=== PATIENT | female | born 1960 | race Caucasian/White ===

== ENCOUNTER 2021-11-30 07:22 | Outpatient (REF) | payer BC, SELFPAY ==
[2021-11-30 11:30] LABS: Hematocrit 41.3 % (37.0-47.0); Hemoglobin 13.7 g/dl (12.0-16.0); Mean Corpuscular HGB Conc 33.2 g/dl (31.0-35.0); Mean Corpuscular Hemoglobin 30.4 pg (27.0-33.0); Mean Corpuscular Volume 91.8 fL (80.0-98.0); Mean Platelet Volume 10.8 fL (9.4-12.3); Platelet Count 282 X10*3/uL (160-400); Red Cell Distribution Width 12.9 % (11.0-16.0); White Blood Count 5.6 X10*3/uL (4.8-10.8)
[2021-11-30 11:43] LABS: Estimated Average Glucose 117 mg/dL; Hemoglobin A1c % 5.7 %
[2021-11-30 12:01] LABS: Alanine Aminotransferase 16 U/L (0-31); Albumin Level 4.4 g/dL (3.5-5.0); Alkaline Phosphatase 93 U/L (39-117); Anion Gap 10 (12-20); Aspartate Amino Transferase 20 U/L (5-31); Bilirubin Total 0.8 mg/dL (0.0-1.0); Blood Urea Nitrogen 14 mg/dL (9-16); Calcium 9.3 mg/dL (8.4-10.2); Carbon Dioxide 27 mmol/L (22-29); Chloride 109 mmol/L (96-108); Cholesterol 224 mg/dL; Estimated Glomerular Filt Rate 59; Glucose Random 104 mg/dL (60-115); HDL Cholesterol 52 mg/dL; LDL Cholesterol Calculated 146 mg/dl; Potassium 3.9 mmol/L (3.3-5.1); Sodium 142 mmol/L (135-145); Total Protein 6.9 g/dL (6.5-8.0); Triglycerides 134 mg/dL
== END 2021-11-30 07:23 | disposition home or self-care (01) ==
LOC: HO.HMGCLDS 07:22
PROVIDERS: Visit Provider Nurse Practitioner Family
DX: E78.00 Pure hypercholesterolemia, unspecified (principal); M79.89 Other specified soft tissue disorders
CPT/HCPCS: 36415; 80053; 80061; 83036; 85027

== ENCOUNTER 2022-11-06 07:06 | Outpatient (REF) | payer BC, SELFPAY ==
[2022-11-06 11:45] LABS: Hematocrit 40.6 % (37.0-47.0); Hemoglobin 13.4 g/dl (12.0-16.0); Mean Corpuscular Hemoglobin 30.5 pg (27.0-33.0); Mean Corpuscular Volume 92.5 fL (80.0-98.0); Mean Platelet Volume 10.3 fL (9.4-12.3); Platelet Count 294 X10*3/uL (160-400); Red Blood Count 4.39 X10*6/uL (4.20-5.50); Red Cell Distribution Width 12.8 % (11.0-16.0); White Blood Count 5.8 X10*3/uL (4.8-10.8)
[2022-11-06 12:16] LABS: Estimated Average Glucose 111 mg/dL; Hemoglobin A1c % 5.5 %
[2022-11-06 12:24] LABS: Alanine Aminotransferase 23 U/L (0-31); Albumin Level 4.2 g/dL (3.5-5.0); Alkaline Phosphatase 87 U/L (39-117); Anion Gap 14 (12-20); Aspartate Amino Transferase 29 U/L (5-31); Bilirubin Total 1.2 mg/dL (0.0-1.0); Blood Urea Nitrogen 18 mg/dL (9-16); Calcium 9.3 mg/dL (8.4-10.2); Carbon Dioxide 25 mmol/L (22-29); Chloride 109 mmol/L (96-108); Cholesterol 211 mg/dL; Estimated Glomerular Filt Rate > 60; Glucose Random 114 mg/dL (60-115); HDL Cholesterol 55 mg/dL; LDL Cholesterol Calculated 138 mg/dl; Potassium 3.6 mmol/L (3.3-5.1); Sodium 144 mmol/L (135-145); Total Protein 6.8 g/dL (6.5-8.0); Triglycerides 93 mg/dL
== END 2022-11-06 07:07 | disposition home or self-care (01) ==
LOC: HO.HMGCLDS 07:06
PROVIDERS: PCP Internal Medicine; Visit Provider Nurse Practitioner Family
DX: Z00.00 Encounter for general adult medical examination without abnormal findings (principal); E78.00 Pure hypercholesterolemia, unspecified; R73.01 Impaired fasting glucose
CPT/HCPCS: 36415; 80053; 80061; 83036; 85027

== ENCOUNTER 2023-04-20 08:00 | Day surgery (SDC) | payer BC, SELFPAY ==
[2023-04-18 11:34] VITALS: BMI 35.1
--- NOTE | 2023-04-18 14:15 | HO.ANESPROP2 ---
Documented by User: Tiffanie Padilla NP 04/18/23 14:16 HPI - Anesthesia Eval Consult details Narrative: 62yo F for Colonoscopy [facility] Past Medical History Medical History Osteoarthritis Depression Surgical History Surgical History History of total right knee replacement History of left knee replacement Hx of hernia repair H/O colonoscopy Social History Social History Patient Tobacco Use Status: Never used Tobacco Use of substances other than those prescribed or required for medical reasons: No Are you DNR?: No Advance Directives: No Advance Directives Information Provided: Yes Meds Allergies Allergy/AdvReac Type Severity Reaction Status Date / Time No Known Allergies Allergy Verified 04/20/23 08:10 Home Medications Medication Instructions Recorded Confirmed Last Taken Type bupropion HCl 300 mg 24 hr tablet, 300 mg PO DAILY 04/18/23 04/18/23 Unknown History extended release cholecalciferol (vitamin D3) 25 25 mcg PO DAILY 04/18/23 04/18/23 Unknown History mcg (1,000 unit) tablet (Vitamin D3) multivitamin 1 tab PO DAILY 04/18/23 04/18/23 Unknown History omega 2-zgv-jkl-fish oil 1,000 mg 1 cap PO DAILY 04/18/23 04/18/23 04/13/23 History (120 mg-180 mg) capsule (Fish Oil) sertraline 50 mg tablet 50 mg PO DAILY 04/18/23 04/18/23 Unknown History Exam Height,Weight and Vital Signs: Height 5 ft 3 in Weight 89.811 kg Assessment and Plan Assessment Anesthesia Assessment: Chart Reviewed Documented by User: Ale Card MD 04/20/23 08:28 [facility] Past Medical History Medical History Osteoarthritis Depression Surgical History Surgical History History of total right knee replacement History of left knee replacement Hx of hernia repair H/O colonoscopy History of Problems with Anesthesia: No Social History Social History Patient Tobacco Use Status: Never used Tobacco Use of substances other than those prescribed or required for medical reasons: No Are you DNR?: No Advance Directives: No Advance Directives Information Provided: Yes Meds Allergies Allergy/AdvReac Type Severity Reaction Status Date / Time No Known Allergies Allergy Verified 04/20/23 08:10 Home Medications Medication Instructions Recorded Confirmed Last Taken Type bupropion HCl 300 mg 24 hr tablet, 300 mg PO DAILY 04/18/23 04/18/23 Unknown History extended release cholecalciferol (vitamin D3) 25 25 mcg PO DAILY 04/18/23 04/18/23 Unknown History mcg (1,000 unit) tablet (Vitamin D3) multivitamin 1 tab PO DAILY 04/18/23 04/18/23 Unknown History omega 5-teg-qod-fish oil 1,000 mg 1 cap PO DAILY 04/18/23 04/18/23 04/13/23 History (120 mg-180 mg) capsule (Fish Oil) sertraline 50 mg tablet 50 mg PO DAILY 04/18/23 04/18/23 Unknown History Exam Airway Mallampati Class: II TM Dist: >3cm Neck ROM: Full Loose/Missing/Broken Teeth: No Heart: RRR Lungs: CTA Assessment and Plan Assessment Anesthesia Assessment: Anesthesia Plan Discussed Final Anesthetic Review History of Problems with Anesthesia: No NPO: Yes ASA Class: II Final Preanesthetic Review: Meds/Allgs Chart Reviewed, Consent Obtained/Reviewed and Anes Risks/Benef Reviewed Patient Risk: Low Procedure Risk: Low Anesthetic Plan Anesthetic Plan: MAC: Disposition: Standard PACU
[2023-04-20 08:03] VITALS: BP 134/81; PULSE 69; RESP 16; TEMP 36.3; O2SAT 95; BMI 34.9
[2023-04-20] MEDS: Lactated Ringers 1,000 ML 100 ML IVCONT (08:25)
--- NOTE | 2023-04-20 08:43 | MHC.SHP ---
Pre-Procedural Eval Section A Date of Service: 04/20/23 Section B Chief Complaint: screening Details of Present Illness: see H&P no changes Relevant Social History: None Present Medications: see Short Stay Collaborative assessment Medical History: No relevant PMH History of Previous Operations: No relevant previous surgery Allergies: Allergies Allergy/AdvReac Type Severity Reaction Status Date / Time No Known Allergies Allergy Verified 04/20/23 08:10 Review of Systems Sugical H&P ROS: Negative: Constitution, Cardiovascular, Respiratory, Neurological, Psychiatric, Hem-Onc, Allergic/Immunologic, Gastrointestinal, Genitourinary, Musculoskeletal, Integumentary, Endocrine and Eyes/Ears/Nose/Throat Exam Surgical H&P Exam: Normal: HEENT, Normal: Heart, Normal: Lungs, Normal: Extremities, Normal: Abdomen, Normal: Skin and Normal: Neurological Plan Diagnosis/Plan: Unchanged I have reviewed the history and physical and performed a pertinent physical examination on my patient. No changes have occurred unless specified. Time Spent With Patient Time: Total time managing care of this patient today ____ minutes.
[2023-04-20 09:14] VITALS: BP 107/53; PULSE 63; RESP 12; TEMP 36.7; O2SAT 96
--- NOTE | 2023-04-20 09:25 | OP_ITS ---
DATE OF SERVICE: 04/20/2023 SURGEON: Norris Cosby MD INDICATIONS: Colon cancer screening. PREOPERATIVE DIAGNOSIS: POSTOPERATIVE DIAGNOSIS: PROCEDURE PERFORMED: Colonoscopy to the cecum. ESTIMATED BLOOD LOSS: COMPLICATIONS: ANESTHESIA: Monitored anesthesia care. ASSISTANTS: SPECIMENS: DESCRIPTION OF PROCEDURE: A history and physical were performed. The risks and benefits of the procedure were explained to the patient and informed consent was obtained. The patient was placed in the left lateral decubitus position. A digital rectal exam was performed and was found to be normal. The Olympus pediatric video colonoscope was introduced into the rectum and advanced to the cecum. The cecum was identified by transillumination, palpation, and identification of ileocecal valve. Examination was performed and the scope was removed. She tolerated the procedure well and was taken to recovery in stable condition. FINDINGS: The terminal ileum was not examined. The visualized colonic mucosa was normal. The quality of prep was good. No polyps were identified. There was mild sigmoid diverticulosis. Retroflexed examination showed small internal hemorrhoids. IMPRESSION: Normal colonoscopy. RECOMMENDATIONS: 1. Follow up as needed. 2. Repeat colonoscopy is recommended in 10 years for average risk individuals. MD TIO Franks/BLACK / [id number]
[2023-04-20 09:35] VITALS: BP 128/75; PULSE 66; RESP 18; TEMP 36.1; O2SAT 96
== END 2023-04-20 10:10 | disposition home or self-care (01) ==
PROVIDERS: PCP Internal Medicine; Visit Provider Internal Medicine Gastroenterology
PROC: 0DJD8ZZ Inspection of Lower Intestinal Tract, Via Natural or Artificial Opening Endoscopic (ICD-10-PCS; CPT 45378; principal; 2023-04-20 09:00)
DX: Z12.11 Encounter for screening for malignant neoplasm of colon (principal); K57.30 Diverticulosis of large intestine without perforation or abscess without bleeding; K64.8 Other hemorrhoids; M19.90 Unspecified osteoarthritis, unspecified site; F32.A Depression, unspecified; Z79.899 Other long term (current) drug therapy; Z96.653 Presence of artificial knee joint, bilateral; Z98.890 Other specified postprocedural states
CPT/HCPCS: 45378; J2250; J2704

== ENCOUNTER 2023-12-10 09:53 | Outpatient (AMB) | payer BC, SELFPAY ==
--- OUTSIDE RECORDS SUMMARY | 2023-12-10 09:55 | XMS_ITS ---
Author Organization [facility] Address [address] [place] [address] Care Team Providers Care Painter Supervisor Name Role Phone Pranay [place] MD Primary Care Provider UnavailNorris Billingsley Jr REASON FOR VISIT screening Encounters Encounter Location Date Provider Diagnosis [facility] [address], [place] [phone] 04/20/2023 Norris Cosby Jr Encounter for screening colonoscopy Z12.11 ASSESSMENTS Encounter Date Diagnosis Assessment Notes Treatment Notes Treatment Clinical Notes 04/20/2023 Encounter for screening colonoscopy (ICD-10 - Z12.11) PLAN OF TREATMENT No Information
--- OUTSIDE RECORDS SUMMARY | 2023-12-10 09:56 | XMS_ITS | Continuity of Care Document ---
Author Organization [facility] Address [address] [place] [address]- Care Team Providers Care Architect Manager Name Role Phone Pranay Angeles MD Primary Care Physician Encounter 02/19/20 - 03/02/20 [facility] [address] [place] [address]- [facility] Discharge Disposition: GOALS MET Allergies, Adverse Reactions, Alerts Substance Reaction Severity Status Pollen sneezing watery eyes scratchy throat Active Other Environmental Allergy cigarette sm luis fernando causes congestion and headaches Active Medications acetaminophen 325 mg oral tablet 650 mg, By Mouth, Every 6 hours, Refills 0, Maintenance, 05/23/18 7:25:14 EST Start Date: 05/23/18 Status: Ordered Aspirin Tablet 325 mg, By Mouth, 2 times a day, Refills 0, Maintenance, 02/18/20 7:50:00 EDT Start Date: 02/18/20 Status: Ordered bupropion 150 mg oral tablet, extended release 1 tablet = 150 mg, By Mouth, 2 times a day, 0 Refills, Maintenance, 05/21/14 9:29:52 Start Date: 05/21/14 Status: Ordered celecoxib 200 mg oral capsule 1 capsule = 200 mg, By Mouth, Daily, 0 Refills, Maintenance, 02/18/20 8:04:00 EDT, Capsule Start Date: 02/18/20 Status: Ordered Colace Capsule 100 mg, 1, capsule, By Mouth, 2 times a day, Refills 0, Maintenance, 02/18/20 7:50:00 EDT Start Date: 02/18/20 Status: Ordered pantoprazole 40 mg oral delayed release tablet = 40 mg, By Mouth, Daily, 0 Refills, Maintenance, 02/18/20 7:50:00 EDT, EC Tablet Start Date: 02/18/20 Status: Ordered sertraline 50 mg oral tablet 1 tablet = 50 mg, By Mouth, Daily, 0 Refills, Maintenance, 05/21/14 9:29:10 Start Date: 05/21/14 Status: Ordered Problem List Condition Effective Dates Status Health Status Inform ant Urinary incontinence(Confirmed) Active Social History Social History Type Response Smoking Status Never smoker entered on: 05/21/14 Sex
--- OUTSIDE RECORDS SUMMARY | 2023-12-10 09:56 | XMS_ITS ---
Author Organization [facility] Address [address] [place] [address] Care Team Providers Care Production Supervisor Off Shift Name Role Phone Pranay [place] MD Primary Care Provider Norris Owens Jr Unavailable ALLERGIES No Known Allergies REASON FOR VISIT Patient presents today for a screening colonoscopy MEDICATIONS Medication SIG (Take, Route, Frequency, Duration) Notes Start Date End Date Status Sertraline HCl Activ e Vitamin D3 Active buPROPion HCl Active Fish Oil 1000 MG 1 capsule Orally Onc e a day for 30 day(s) Active Multi Vitamin - 1 tablet Orally Once a day for 30 day(s) Active MiraLax (colon prep) 17 GM/SCOOP mixed with Gatorade or Crystal Light Orally begin at 5:00 p.m. the day before the procedure for 1 day 02/28/2023 Active IMMUNIZATIONS Vaccine Route Administration Date Status Comme nts Influenza Unknown 02/28/2023 Refused SOCIAL HISTORY Tobacco Use: Social History Observation Description Date Details (start date - stop date) Never Smoker NA - NA Sex Assigned At : Social History Observation Description Sex Assigned At Unknown Tobacco Use/Smoking Question Answer Notes Patient is a nonsmoker Alcohol Screen Question Answer Notes Did you have a drink contain ing alcohol in the past year? Yes Points 3 Interpretation Positive How often did you have 6 or more drinks on one occasion in the past year? Less than monthly (1 point) How many drinks did you have on a typical day when you were drinking in the past year? 1 or 2 drinks (0 point) How often did you have a dri nk containing alcohol in the past year? 2 to 4 times a month (2 points) PROBLEMS Problem Type ICD Code Onset Dates Problem Status W/U Status Risk SNOMED Code Notes Problem Colon cancer screening (Z12.11) Active confirmed 860342503 Problem Encounter for other preprocedural examination (Z01.818) Active confirmed 964064815 Problem Long-term current use of high risk medication other than anticoagulant (Z79.899) Active confirmed 715079665 VITAL SIGNS BMI 34.59 kg/m2 02/28/2023 Blood pressure systolic 000 mm Hg 02/29/20 23 Blood pressure diastolic 00 mm Hg 023 Height 63.50 in 02/28/2023 Temperature 97.8 degrees Fahrenheit 02/29/20 23 Weight 198 lb 6 oz lbs 02/28/2023 Encounters Encounter Location Date Provider Diagnosis [facility] [address] [place] [address] 02/28/2023 Norris Cosby Jr Colon cancer screening Z12.11 ; Encounter for other preprocedural examination Z01.818 and Long-term current use of high risk medication other than anticoagulant Z79.899 ASSESSMENTS Encounter Date Diagnosis Assessment Notes Treatment Notes Treatment Clinical Notes 02/28/2023 Colon cancer screening (ICD-10 - Z12.11) Colonoscopy material was printed 02/28/2023 Encounter for other preprocedural examination (ICD-10 - Z01.818) 02/28/2023 Long-term current use of high risk medication other than anticoagulant (ICD-10 - Z79.899) PLAN OF TREATMENT Medication Medication Name Sig Start Date Stop Date Notes MiraLax (colon prep) 17 GM/SCOOP mixed with Gatorade or Crystal Light Orally begin at 5:00 p.m. the day before the procedure for 1 day 02/28/2023 Treatment Notes Assessment Notes Colon cancer screening Colonoscopy mater ial was printed Future Test Test Name Order Date COLONOSCOPY 02/28/2023 Next Appt Details Follow Up: prn, Reason: Progress Notes * Examination Category Sub-Category Detail Notes General Examination GENERAL APPEARANCE: in no ac dulce distress HEAD: normocephalic EYES: sclera non-icteric NECK/THYROID: no lymphadenopathy HEART: S1, S2 normal, no mu rmurs CHEST: normal shape and exp ansion LUNGS: clear to auscultatio n bilaterally ABDOMEN: soft, nontender, non distended, bowel sounds present, no organomegaly SKIN: anicteric EXTREMITIES: no clubbing, cyanosi s, or edema PSYCH: cognitive function i ntact ORAL CAVITY: mucosa moist
--- OUTSIDE RECORDS SUMMARY | 2023-12-10 09:56 | XMS_ITS | Continuity of Care Document ---
Author Organization [facility] ter Address [address] [place] [address]- Care Team Providers Care Manager Front Name Role Phone Pranay Angeles MD Primary Care Physician Encounter [facility] R [id number] Date(s): 09/01/19 - 10/11/[address] [address]- [facility] Attending Physician: Chevy Mukherjee MD Admitting Physician: Chevy Mukherjee MD Referring Physician: Chevy Mukherjee MD Allergies, Adverse Reactions, Alerts Substance Reaction Severity [...] 2 times a day, Refills 0, Maintenance, 05/23/18 7:25:22 EST Start Date: 05/23/18 Status: Ordered bupropion 150 mg oral tablet, extended release 1 tablet = 150 mg, By Mouth, 2 times a day, 0 Refills, Maintenance, 05/21/14 9:29:52 Start Date: 05/21/14 Status: Ordered celecoxib 200 mg oral capsule = 200 mg, By Mouth, Daily, 0 Refills, Maintenance, 05/23/18 7:25:29 EST, Capsule Start Date: 05/23/18 Status: Ordered clobetasol topical 0.05% ointment See Instructions, Topically at bedtime for 4 weeks and then every other day for 4 weeks and then 2 x per week for 4 weeks - will evaluate for further instructions, # 30 Gm, 1 Refills, Maintenance, 05/21/14 11:21:29 Start Date: 05/21/14 Status: Ordered docusate sodium 100 mg oral capsule 100 mg, 1, capsule, By Mouth, 2 times a day, Refills 0, Maintenance, 05/23/18 7:25:32 EST Start Date: 05/23/18 Status: Ordered Fluticasone Nasal Daily, 0 Refills, Maintenance, 05/21/14 9:31:01 Start Date: 05/21/14 Status: Ordered metronidazole 500 mg oral tablet 1 tablet = 500 mg, By Mouth, Every 8 hours, 0 Refills, Maintenance, 05/21/14 9:30:11 Start Date: 05/21/14 Status: Ordered oxybutynin 5 mg oral tablet 1 tablet = 5 mg, By Mouth, Daily, 0 Refills, Maintenance, 05/21/14 9:29:32 Start Date: 05/21/14 Status: Ordered pantoprazole 40 mg oral delayed release tablet = 40 mg, By Mouth, Daily, 0 Refills, Maintenance, 05/23/18 7:25:42 EST, EC Tablet Start Date: 05/23/18 Status: Ordered sertraline 50 mg oral tablet 1 tablet = 50 mg, By Mouth, Daily, 0 Refills, Maintenance, 05/21/14 9:29:10 Start Date: 05/21/14 Status: Ordered Problem List Condition Effective Dates Status Health Status Inform ant Urinary incontinence(Confirmed) Active Social History Social History Type Response Smoking Status Never smoker entered on: 05/21/14 Sex
--- OUTSIDE RECORDS SUMMARY | 2023-12-10 09:56 | XMS_ITS | Continuity of Care Document ---
Author Organization [facility] ter Address [address] [place] [address]- Care Team Providers Care Copywriter Name Role Phone Pranay Angeles MD Primary Care Physician Encounter [facility] Date(s): 01/30/20 - 03/06/[address] [address]- [facility] Attending Physician: Chevy Mukherjee MD Admitting Physician: [...]
--- OUTSIDE RECORDS SUMMARY | 2023-12-10 09:56 | XMS_ITS | Continuity of Care Document ---
Author Organization [facility] ter Address [address] [place] [address]- Care Team Providers Care Demurrage Agent Name Role Phone Pranay Angeles MD Primary Care Physician [place] [facility] [place] 11/29/19 - 01/08/[address] [address]- [facility] Attending Physician: Chevy Mukherjee MD Admitting [...]
--- OUTSIDE RECORDS SUMMARY | 2023-12-10 09:56 | XMS_ITS ---
Author Organization [facility] Address [address] [place] [address] Care Team Providers Care Weatherization Specialist Name Role Phone Pranay Angeles MD Primary Care Provider UnavailNorris Billingsley Jr Encounters Encounter Location Date Provider Diagnosis [facility] [address] [place] [address] 02/28/2023 Norris Cosby Jr PLAN OF TREATMENT No Information
--- OUTSIDE RECORDS SUMMARY | 2023-12-10 09:56 | XMS_ITS | Patient Health Record ---
Author Organization [facility] Address [address] [place] [address] Care Team Providers Care Juvenile Court Liaison Name Role Phone Pranay Angeles MD Primary Care Provider Unavaila ble Norris Cosby Jr Unavailable ALLERGIES No Known Allergies REASON FOR REFERRAL Referring Provider First Name Pranay Referring Provider Last Name Karthik Referring Provider Speciality Internal M edicine Referred Organization [facility] Referred Provider Norris Cosby Jr Referred Address [address] [facility],[place], [place],[address],[place] Referred Provider Specialty Gastroentero logy Referral Priority Routine MEDICATIONS Medication SIG (Take, Route, Frequency, Duration) Notes Start Date End Date Status Sertraline HCl Activ e Vitamin D3 Active buPROPion HCl Active Multi Vitamin - 1 tablet Orally Once a day for 30 day(s) Active MiraLax (colon prep) 17 GM/SCOOP mixed with Gatorade or Crystal Light Orally begin at 5:00 p.m. the day before the procedure for 1 day 02/28/2023 Active Fish Oil 1000 MG 1 capsule Orally Onc e a day for 30 day(s) Active IMMUNIZATIONS Vaccine Route Administration Date Status Comme nts Influenza Unknown 02/28/2023 Refused SOCIAL HISTORY Sex Assigned At : Social History Observation Description Sex Assigned At Unknown PROBLEMS Problem Type ICD Code Onset Dates Problem Status W/U Status Risk SNOMED Code Notes Problem Constipation (564.00) Active confirmed Constipation (90202793) Problem Colon cancer screening (Z12.11) Active confirmed 286624143 Problem Encounter for other preprocedural examination (Z01.818) Active confirmed 153772962 Problem Long-term current use of high risk medication other than anticoagulant (Z79.899) Active confirmed 506062374 VITAL SIGNS Temperature 97.8 degrees Fahrenheit 02/28/2023 Blood pressure diastolic 00 mm Hg 02/28/2023 Height 63.50 in 02/28/2023 Blood pressure systolic 000 mm Hg 02/28/2023 Weight 198 lb 6 oz lbs 02/28/2023 BMI 34.59 kg/m2 02/28/2023 Encounters Encounter Location Date Provider Diagnosis [facility] [place] Out[facility] [address] [place] [id number] 04/20/2023 Norris Cosby Jr Encounter for screening colonoscopy Z12.11 [facility] [address] [place] [address] [place] [address] 02/28/2023 Norris Cosby Jr Colon cancer screening Z12.11 ; Encounter for other preprocedural examination Z01.818 and Long-term current use of high risk medication other than anticoagulant Z79.899 [facility] [address] [place] [address] [place] [address] 02/28/2023 Norris Cosby Jr ASSESSMENTS Encounter Date Diagnosis Assessment Notes Treatment Notes Treatment Clinical Notes 04/20/2023 Encounter for screening colonoscopy (ICD-10 - Z12.11) 02/28/2023 Colon cancer screening (ICD-10 - Z12.11) Colonoscopy material was printed 02/28/2023 Encounter for other preprocedural examination (ICD-10 - Z01.818) 02/28/2023 Long-term current use of high risk medication other than anticoagulant (ICD-10 - Z79.899) PLAN OF TREATMENT Future Test Test Name Order Date COLONOSCOPY 01/26/2012 COLONOSCOPY 02/28/2023 Insurance Providers Payer Name Payer Address Payer Phone Subscriber Number Group Number Insured Name Patient Relationship to Insured Coverage Start Date Coverage End Date [facility] [employer] CLAIM[employer] [address] [place] [address] [id number] 5 KYLIE EASON Self - patient is the insured 3 MEDICAL (GENERAL) HISTORY Medical History History ICD Code Depression Osteoarthritis Colonoscopy 2011, normal ten-year follow up Surgical History Surgery Date(Month/Year) Hernia left knee replacement 2017 right knee replacement 2019 Varicose vein repair 2017
--- OUTSIDE RECORDS SUMMARY | 2023-12-10 09:56 | XMS_ITS | Continuity of Care Document ---
Author Organization [facility] ter Address [address] [place] [address]- Care Team Providers Care Surgical Specialist Name Role Phone Pranay Angeles MD Primary Care Physician Encounter [facility] [place] Date(s): 02/17/20 - 02/18/[address] [address] [facility] Discharge Disposition: A-Transfer VNA/Home Health Attending Physician: Chevy Mukherjee MD Admitting Physician: [...] 7:50:00 EDT Start Date: 02/18/20 Status: Ordered HYDROmorphone 2 mg oral tablet See Instructions, PRN Pain , Mild, 2 mg tab, 1 to 2 tab By Mouth Every 4 to 6 hours prn pain, # 84 tablet, 0 Refills, Acute 02/25/20 7:53:00 EDT, 02/18/20 7:50:00 EDT, Tablet, [facility], Partial fill upon patient request, 160, cm, 02/17... Start Date: 02/18/20 Stop Date: 02/25/20 Status: Ordered pantoprazole 40 mg oral delayed [...] Health Status Inform ant Urinary incontinence(Confirmed) Active Results Radiology Reports * Exam Date Time Procedure Performing Provider Status 02/17/20 11:10 PM Knee 1 or 2 Views Right Ra zachery Higuera; Modified Notes: (Knee 1 or 2 Views Right) Reason For Exam: Postop RESULT: Knee 1 or 2 Views Right Knee 1 or 2 Views Right 1 view INDICATION/CLINICAL QUESTION: Reason: Postop; Clinical Question(s): Implant Position; COMPARISON: None. FINDINGS: Total knee arthroplasty with intact hardware and normal alignment. No fracture. Surgical drain in place. IMPRESSION: No apparent complication. WSN: [id number] Ordering Physician: Willam Mehta V Dictated By: Harvinder Swanson MD Dictated Date/Time: 02/17/20 11:17 p Reviewed By: Harvinder Swanson MD Signed By: Harvinder Swanson MD Signed Date/Time: 02/17/20 11:17 pm Transcribed By: RICARDO Transcribed Date/Time: 02/17/20 11:17 pm Vital Signs Most recent to oldest [Reference Range]: 1 2 3 Height 160 cm (02/18/20 10:58 AM) 160 cm (02/18/20 6:57 AM) 160 cm (02/17/20 3:35 PM) Weight 82.5 kg (02/17/20 9:07 AM) 82.5 kg (02/17/20 7:20 AM) Oxygen Saturation [94-100 %] 100 % (02/18/20 10:58 AM) 100 % (02/18/20 6:57 AM) 96 % (02/18/20 4:00 AM) Pulse Rate [55-90 bpm] 52 bpm *L* (02/18/20 10:58 AM) 50 bpm *L* (02/18/20 6:57 AM) 50 bpm *L* (02/18/20 4:00 AM) Body Mass Index [18.5-24.99] 32.23 *>HHI* (02/17/20 9:07 AM) 32.23 *>HHI* (02/17/20:20 AM) Blood Pressure [90-138/55-84 mm Hg] 125/67mm Hg (02/18/20 10:58 AM) 98/63mm Hg (02/18/20 6:57 AM) 102/55mm Hg (02/18/20 4:00 AM) Respiratory Rate [16-30 br/min] 16 br/min (02/18/20 1:57 PM) 16 br/min (02/18/20 12:57 PM) 17 br/min (02/18/20 10:58 AM) Temperature [96.8-100.4 DegF] 97.7 DegF (02/18/20 10:58 AM) 97.5 DegF (02/18/20 6:57 AM) 97.5 DegF (02/18/20 4:00 AM) Mode of Delivery (Oxygen) Room air (02/18/20 10:58 AM) Room air (02/18/20 6:57 AM) Room air (02/18/20 4:00 AM) Blood pressure sites Arm, left (02/18/20 10:58 AM) Arm, left (02/18/20 6:57 AM) Arm, left (02/18/20 4:00 AM) Temperature Route Oral (02/18/20 10:58 AM) Oral (02/18/20 6:57 AM) Oral (02/18/20 4:00 AM) Dry Weight 82.5 kg (02/17/20 7:20 AM) Social History Social History Type Response Smoking Status Never smoker entered on: 05/21/14 Sex
--- OUTSIDE RECORDS SUMMARY | 2023-12-10 09:56 | XMS_ITS | Continuity of Care Document ---
Author Organization [facility] Address [address] [place] [id number]- Care Team Providers Care Moss Bleacher Name Role Phone Pranay Angeles MD Primary Care Physician [phone] Encounter [facility] [place] Date(s): 02/05/20 - 03/06/[address] [address]- [facility] Attending Physician: Admtr, [id number] Admitting Physician: Admtr, [id number] Referring Physician: Admtr, [id number] Allergies, Adverse Reactions, Alerts Substance Reaction Severity [...]
--- OUTSIDE RECORDS SUMMARY | 2023-12-10 09:56 | XMS_ITS | Continuity of Care Document ---
Author Organization [facility] Address [address] [place] [id number]- Care Team Providers Care Forestry Extension Specialist Name Role Phone Pranay Angeles MD Primary Care Physician Encounter [facility] [place] Date(s): 02/17/20 - 03/18/[address] [id number] Attending Physician: Not on Staff, Attending MD Admitting Physician: Not on Staff, Admitting MD Referring Physician: Not on Staff, Referring MD Allergies, Adverse Reactions, Alerts Substance Reaction [...]
--- OUTSIDE RECORDS SUMMARY | 2023-12-10 09:56 | XMS_ITS | Patient Health Record ---
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 Name Role Phone Pranay Angeles MD Primary Care Provider Dusty Herman Unavailable [phone] ALLERGIES Allergen (clinical drug ingredient) Drug/Non Drug Allergy documented on EMR Reaction Allergy Type Onset Date Status 10/22/17 Per Pt not allergic to adhesive bandages (uncoded) Unknown Allergy Active seasonal allergies Unknown Drug Allergy Active REASON FOR REFERRAL No Information MEDICATIONS Medication SIG (Take, Route, Fr equency, Duration) Notes Start Date End Date Status Prednisone Active Sertraline HCl 50 MG 1 tablet Orally Onc e a day for 30 day(s) Active Fish Oil Active buPROPion HCl ER (SR) Active Vitamin D Active SOCIAL HISTORY Sex Assigned At : Social History Observation Description Sex Assigned At Unknown Tobacco use other than smoking: Question Answer Notes Are you an other tobacco user? No PROBLEMS Problem Type ICD Code Onset Dates Problem Status W/U Status Risk SNOMED Code Notes Problem Tinea unguium (B35.1) Active confirmed Tinea unguium (263566798) PLAN OF TREATMENT Pending Test Test Name Order Date [id number] NAIL, 6 OR MORE 07/18/2013 [id number] NAIL, 6 OR MORE 04/03/2014 54464-DGNOEFH NAIL, 6 OR MORE 06/26/2014 67558-TDQBFGV NAIL, 6 OR MORE 11/05/2017 26032-CGLOQFM NAIL, 6 OR MORE 10/17/2013 17864-CAPEFNC NAIL, 6 OR MORE 01/27/2014 45239-FERDTAE NAIL, 6 OR MORE 11/03/2019 57450-TICAEQU NAIL, 6 OR MORE 01/05/2020 36783-Qdiyociw Plate 04/04/2013 72202-Mgtgzbca Plate 10/17/2013 21871-Trmvctqk Plate 07/18/2013 56447-Ujwtkpam Plate Each Additional 11/2013 20286-Irufiuxn Plate Each Additional 10/2013 64905-Mdtxddyh Plate Each Additional 21707-ETD 10/22/2017 97072-HBHSIZD SKIN/TISSUE 11/05/2017 Insurance Providers Payer Name Payer Address Payer Phone Subscriber Number Group Number Insured Name Patient Relationship to Insured Coverage Start Date Coverage End Date [facility] [address] [place] [address] [phone] [id number] Abhilash Almanza Spouse - patient is the spouse of the insured MEDICAL (GENERAL) HISTORY Medical History History ICD Code back, hip, knee pain depression chicken pox fibromyalgia Surgical History Surgery Date(Month/Year) hernia knee surgery, left 2018
--- NOTE | 2023-12-10 10:46 | MHC.OFFWIV ---
Intake Vital Signs 12/10/23 10:47 Height 5 ft 3 in Weight 206 lb BMI 36.5 BP 124/82 Blood Pressure Location Rt brachial Position Sitting Pulse 69 Pulse Source Pulse Oximeter Temp 98.1 F Temp Source Oral Pulse Oximetry (%) 98 Oxygen Delivery Method Room Air Intake Visit Reasons: Left knee pain, swollen Intake Note: pt c/o LT knee pain and swelling. Fell almost 3 weeks ago. Has bilateral knee replacements Patient Tobacco Use Status: Never used Tobacco Allergies No Known Allergies Allergy (Verified 12/10/23 10:47) Medication List - Last Reconciled 12/10/23 by Mariaa Murguia NP bupropion HCl XL 300 mg PO DAILY cholecalciferol (vitamin D3) (Vitamin D3) 25 mcg PO DAILY multivitamin 1 tab PO DAILY omega 7-foc-wmf-fish oil 1,000 mg (120 mg-180 mg) (Fish Oil) 1 cap PO DAILY omeprazole 20 mg PO DAILY sertraline 50 mg PO DAILY Do you need a note to return to daycare/school/sports/work: No HPI Left knee pain, swollen HPI Details This note is constructed using voice recognition software. While every effort has been made to ensure accuracy, emergency dispatch operator errors may have been included. The patient is a 61 year old female who presents to the clinic today with left knee pain 3 weeks after a fall. She notes that when she initially fell she fell to both of her knees, and there worse extensive bruising to both of them. She follows [facility], whom she contacted when she realized that there was significant swelling resulting in the left knee. They obtain blood work to rule out impaction, however did not contact her with the results. She has had no warmth, redness to the area. She notes that initially she had some pain with walking due to the fall, however that has improved. She denies any defect in strength or range of motion. She has been applying ice to the area and elevating her legs to help improve the symptoms. [facility] Medical History Osteoarthritis Depression Surgical History History of total right knee replacement History of left knee replacement Hx of hernia repair H/O colonoscopy Social History Patient Tobacco Use Status: Never used Tobacco Review of Systems Const All systems reviewed & are unremarkable except as noted in HPI and below Physical Exam Vital Signs: Last Vital Signs Temp 98.1 F 12/10/23 10:47 Pulse 69 12/10/23 10:47 BP 124/82 12/10/23 10:47 Pulse Ox 98 12/10/23 10:47 Oxygen Delivery Method Room Air 12/10/23 10:47 BMI result Body Mass Index 36.5 Const General: cooperative, healthy appearing, comfortable, no acute distress and alert Orientation/consciousness: patient oriented x3 Limitations: no limitations Skin General skin exam: no rashes or lesions noted, elasticity normal and turgor normal Neuro General: patient oriented x3 Extrem Other: Palpable inflammation to left knee suprapatellar region bilaterally, left more than right the inflammation appears to be encapsulated, mobile, and minimally tender. There was no erythema or warmth or discharge or open lesions. General: Yes full ROM, Yes capillary refill normal, Yes normal exam except as noted and Yes normal gait Psych Appearance: grossly normal Mental Status: mental status grossly normal Speech and movement: Normal speech and movement present Affect: normal affect Assessment & Plan Assessment & Plan (1) Knee pain, left: Code(s): M25.562 - Pain in left knee Qualifiers: Chronicity: unspecified Qualified Code(s): M25.562 - Pain in left knee Plan: Likely consistent with hematoma, however x-ray obtained given fall to rule out any alternate etiology. X-ray reviewed, no obvious fracture, deformity, we will await official radiology read. Advised patient to follow up with knowing when Orthopedics as previously planned. We will review x-ray results with patient once received. Plan See above for full details and plan. Orders: Orders XR knee LT 3V Today M25.562 - Pain in left knee Coding Level of Care Code Est Pt Level 4 (12925) Diagnoses Left knee pain, unspecified chronicity M25.562 Chronicity: unspecified
[2023-12-10 10:47] VITALS: BP 124/82; PULSE 69; TEMP 36.7; O2SAT 98; BMI 36.5
== END 2023-12-10 11:29 | disposition home or self-care (01) ==
PROVIDERS: PCP Internal Medicine; Visit Provider Registered Nurse
DX: M25.562 Pain in left knee (principal)
CPT/HCPCS: 99214

== ENCOUNTER 2023-12-10 11:21 | Outpatient (REF) | payer BC, SELFPAY ==
--- NOTE | ~2023-12-10 | XR_ITS ---
EXAMINATION: XR KNEE, LEFT CLINICAL INFORMATION: Left knee pain COMPARISON: Left knee 09/15/2008 TECHNIQUE: Four views of the left knee. FINDINGS: A left total knee prosthesis is present. The prosthesis appears intact. No fractures or dislocations. No evidence of loosening. XR/XR knee LT 3V IMPRESSION: Left total knee prosthesis without evidence of complication.
== END 2023-12-10 11:22 | disposition home or self-care (01) ==
LOC: HO.HMGCX 11:21
PROVIDERS: Visit Provider Registered Nurse
DX: M25.562 Pain in left knee (principal)
CPT/HCPCS: 73562